=== PATIENT | female | born 1980 | race Caucasian/White ===

== ENCOUNTER 2018-10-08 19:51 | Emergency (ER) | payer OTHER ==
[~2018-10-08] VITALS: Ht 157.5 cm; Wt 54.4 kg
[2018-10-08 20:09] VITALS: Ht 157.5 cm; Wt 54.4 kg
[2018-10-08 22:03] VITALS: BP 126/83
== END 2018-10-08 22:03 | disposition home or self-care (01) ==
LOC: ED 19:51
DX: S93.601A Unspecified sprain of right foot, initial encounter (principal); E11.9 Type 2 diabetes mellitus without complications; X50.1XXA Overexertion from prolonged static or awkward postures, initial encounter; Y93.89 Activity, other specified; Y92.89 Other specified places as the place of occurrence of the external cause; Y99.8 Other external cause status